=== PATIENT | female | born 1975 | race Caucasian/White ===

== ENCOUNTER 2019-02-22 15:51 | Outpatient (CLI) | payer BC, MEDICAID, OTHER ==
[~2019-02-22 15:51] MED LIST: AMOX1TAB64 PO; CLIN150C14 PO; CLON0.2T PO; FURO-92 PO; HYDR-3240 PO; HYDR-3245 PO; HYDR2TAB29 PO; IBUP-1223 PO; IBUP1TAB5 PO; MORP-52 PO; NIFE90TA8 PO; NO MEDS; OXYC-306 PO; POTA20TA6 PO; PREN1TAB56 PO; SULF1TAB24 PO; ZOLP-413 PO
[2019-02-22] MEDS ORDERED: VENL150C6 PO (16:27)
[2019-02-22] MEDS ORDERED: MEDR10TA PO (16:27)
[2019-02-22 16:33] LABS: BASOPHILS # (AUTO) 0.04 x10^3/uL (0-0.1); BASOPHILS % (AUTO) 1 % (0-1); EOSINOPHILS % (AUTO) 1 % (1-7); LYMPHOCYTES # (AUTO) 2.69 x10^3/uL (1-3.4); LYMPHOCYTES % (AUTO) 31 % (22-44); MD NO; MEAN CORPUSCULAR HEMOGLOBIN 28.8 pg (27.0-34.8); MEAN CORPUSCULAR HGB CONC 32.7 g/dL (32.4-35.8); MEAN CORPUSCULAR VOLUME 88.1 fL (80-100); MEAN PLATELET VOLUME 8.2 fL (7.4-10.4); MONOCYTES # (AUTO) 0.53 x10^3/uL (0.2-0.8); MONOCYTES % (AUTO) 6 % (2-9); NEUTROPHILS # (AUTO) 5.33 x10^3/uL (1.8-6.8); NEUTROPHILS % (AUTO) 61 % (42-75); PLATELET COUNT 278 x10^3/uL (130-400); RED BLOOD COUNT 4.87 x10^6/uL (3.82-5.3); RED CELL DISTRIBUTION WIDTH 14.2 % (9.6-15.2)
[2019-02-22] MEDS ORDERED: CETI10CA PO (16:33)
[2019-02-22 16:38] LABS: INTERNATIONAL NORMALIZED RATIO 0.92 (0.93-1.1); PROTHROMBIN TIME 9.7 Seconds (9.6-11.5)
[2019-02-22 16:40] LABS: ALANINE AMINOTRANSFERASE 27 U/L (12-78); ALBUMIN 3.6 g/dL (3.4-5.0); ANION GAP 7 mmol/L (5-15); CALCIUM 8.9 mg/dL (8.5-10.1); CHLORIDE 106 mmol/L (98-107); CREATININE 0.76 mg/dL (0.55-1.02)
[2019-02-22 16:44] LABS: ALKALINE PHOSPHATASE 78 U/L (45-117); BILIRUBIN,TOTAL 0.2 mg/dL (0.2-1.0); TOTAL PROTEIN 7.4 g/dL (6.4-8.2)
== END 2019-02-22 23:59 | disposition home or self-care (01) ==
LOC: STAR 15:51
PROVIDERS: ATTEND Specialist
DX: Z01.812 Encounter for preprocedural laboratory examination (principal); D25.9 Leiomyoma of uterus, unspecified; R19.07 Generalized intra-abdominal and pelvic swelling, mass and lump
CPT/HCPCS: 36415; 80053; 84703; 85025; 85610; 85730

== ENCOUNTER 2019-02-28 13:52 | Day surgery (SDC) | payer BC, MEDICAID, OTHER ==
[~2019-02-28] VITALS: Ht 170.2 cm; Wt 104.7 kg
[~2019-02-28 13:52] MED LIST changes: +CETI10CA PO; +GLYCOPYRROLATE 0.2MG/1ML, 5ML ONE; +KETOROLAC 30 MG/1 ML ONE; +MEDR10TA PO; +METOCLOPRAMIDE 5 MG/ML, 2ML ONE; +VENL150C6 PO
[2019-02-28] MEDS ORDERED: LACTATED RINGERS 1,000 ML IV SCH (14:30)
[2019-02-28 14:34] VITALS: BP 143/88
[2019-02-28] MEDS ORDERED: ACETAMINOPHEN 500 MG TABLET PO ONE (14:34)
[2019-02-28 14:44] LABS: HCG UR SG 1.014 (1.003-1.030)
[2019-02-28] MEDS ORDERED: BUPIVACAINE/PF 0.25% ONE (14:53)
[2019-02-28] MEDS ORDERED: FENTANYL PF 250 MCG/5ML ONE (17:38)
[2019-02-28] MEDS ORDERED: MIDAZOLAM 1 MG/ML, 2ML ONE (17:38)
[2019-02-28] MEDS ORDERED: PROPOFOL 50 ML ONE ×3 (18:08→19:24)
[2019-02-28] MEDS ORDERED: ACETAMINOPHEN 325 MG TABLET PO PRN (19:00)
[2019-02-28] MEDS ORDERED: SCOPOLAMINE PATCH, 1.5MG PATCH.TD72 TD PRN (19:00)
[2019-02-28] MEDS ORDERED: MIDAZOLAM 1 MG/ML, 2ML IV PRN (19:00)
[2019-02-28] MEDS ORDERED: OXYcodone 5 MG/5 ML ORAL.SOL UDC PO PRN (19:00)
[2019-02-28] MEDS ORDERED: METOPROLOL 1 MG/ML, 5ML IV PRN (19:00)
[2019-02-28] MEDS ORDERED: ONDANSETRON 2MG/ML, 2ML IV PRN (19:00)
[2019-02-28] MEDS ORDERED: MEPERIDINE/PF 25MG/0.5ML IVPush PRN (19:00)
[2019-02-28] MEDS ORDERED: FENTANYL PF 100 MCG/2ML IV PRN (19:00)
[2019-02-28] MEDS ORDERED: DIAZEPAM 5 MG/ML, 2ML IVPush PRN (19:00)
[2019-02-28] MEDS ORDERED: ALBUTEROL/IPRATROPIUM 2.5MG/0.5MG, 3 ML NPPB PRN (19:00)
[2019-02-28] MEDS ORDERED: hydrALAzine 20 MG/ML, 1ML IV PRN (19:00)
[2019-02-28] MEDS ORDERED: PROMETHAZINE 25 MG/ML, 1ML IV PRN (19:00)
[2019-02-28] MEDS ORDERED: HYDROmorphone 2 MG/ML, 1ML IVPush PRN (19:00)
[2019-02-28] MEDS ORDERED: PROPOFOL 10 MG/ML, 20ML ONE (19:49)
[2019-02-28] MEDS ORDERED: DEXAMETHASONE 4 MG/ML, 1ML ONE (19:49)
[2019-02-28] MEDS ORDERED: CEFAZOLIN 1,000 MG ONE (19:49)
[2019-02-28] MEDS ORDERED: NEOSTIGMINE 1 MG/ML, 10ML ONE (19:49)
[2019-02-28] MEDS ORDERED: ROCURONIUM 10MG/ML,5ML ONE (19:49)
[2019-02-28] MEDS ORDERED: ONDANSETRON 2MG/ML, 2ML ONE (19:49)
[2019-02-28] MEDS ORDERED: HYDROmorphone 2 MG/ML, 1ML ONE (20:15)
[2019-02-28] MEDS ORDERED: OXYcodone/APAP 7.5/325MG TABLET ONE (23:59)
[2019-03-01] MEDS ORDERED: OXYcodone/APAP 7.5/325MG TABLET PO PRN
== END 2019-02-28 23:58 | disposition home or self-care (01) ==
LOC: OR 13:52 → 4NOR 21:30 → OR 23:58
PROVIDERS: ATTEND Specialist
DX: D25.9 Leiomyoma of uterus, unspecified (principal); N72 Inflammatory disease of cervix uteri; N83.02 Follicular cyst of left ovary; N83.8 Other noninflammatory disorders of ovary, fallopian tube and broad ligament; N73.6 Female pelvic peritoneal adhesions (postinfective); F32.9 Major depressive disorder, single episode, unspecified; F41.9 Anxiety disorder, unspecified; E66.9 Obesity, unspecified; Z68.35 Body mass index [BMI] 35.0-35.9, adult; Z88.8 Allergy status to other drugs, medicaments and biological substances; Z90.49 Acquired absence of other specified parts of digestive tract; Z98.84 Bariatric surgery status; Z98.890 Other specified postprocedural states
CPT/HCPCS: 36415; 58552; 81025; 86850; 86900; 86923; 88307; J0690; J1100; J1170; J1885; J2250; J2405; J2704; J2710; J2765; J3010; J3490; J7120; S2900; G0378